=== PATIENT | female | born 1965 | race Caucasian/White ===

== ENCOUNTER 2021-11-13 11:52 | Emergency (ER) | payer MEDICAID ==
[~2021-11-13] VITALS: Ht 157.5 cm; Wt 91.0 kg
[2021-11-13] MEDS ORDERED: IBUPROFEN 600MG TABLET PO ONE (14:45)
[2021-11-13 14:49] VITALS: BP 152/98
[2021-11-13] MEDS ORDERED: IBUP-2029 MT (16:18)
[2021-11-13] MEDS ORDERED: BENZ200C52 MT (16:18)
[2021-11-13] MEDS ORDERED: ACETAMINOPHEN 325MG TABLET PO ONE (16:45)
== END 2021-11-13 16:55 | disposition home or self-care (01) ==
LOC: ER 13:28
DX: U07.1 COVID-19 (principal); I10 Essential (primary) hypertension; E03.9 Hypothyroidism, unspecified
CPT/HCPCS: 71045; 87426; 93005; 99285; C9803